=== PATIENT | male | born 1985 | race Caucasian/White ===

== ENCOUNTER 2024-01-27 10:53 | Emergency (ER) | payer OTHER ==
[~2024-01-27] VITALS: Ht 180.3 cm; Wt 95.3 kg
[2024-01-27] MEDS ORDERED: ARIPIPRAZOLE5 MG PO (11:14)
[2024-01-27] MEDS ORDERED: OXCARBAZEPINE600 MG PO (11:15)
[2024-01-27] MEDS ORDERED: Ondansetron Hydrochloride 4 MG/2 ML VIAL IV ONE (11:30)
[2024-01-27] MEDS ORDERED: SODIUM CHLORIDE 0.9% 1,000 ML IV ONE (11:30)
[2024-01-27 11:41] LABS: BASO % 0.2 % (0.0-1.0); EOS # 0.1 10*3/uL (0.0-0.4); EOS % 0.4 % (1.0-4.0); LYMPH # 1.2 10*3/uL (1.3-4.4); LYMPH % 7.4 % (27.0-41.0); MEAN CORPUSCULAR HGB 31.7 pg (27.0-31.0); MEAN CORPUSCULAR HGB CONC 35.2 g/dl (33.0-37.0); MEAN PLATELET VOLUME 9.3 fl (9.6-12.3); MONO # 0.6 10*3/uL (0.1-1.0); MONO % 3.8 % (3.0-9.0); NEUT # 14.6 10*3/uL (2.3-7.9); NEUT % 87.7 % (47.0-73.0); PLATELET COUNT AUTOMATED 276 10*3/uL (130-400); RED BLOOD COUNT 4.89 10*6/uL (4.50-5.90); WHITE BLOOD COUNT 16.7 10*3/uL (4.8-10.8)
[2024-01-27] MEDS ORDERED: Metoprolol Tartrate 5 MG/5 ML VIAL IV ONE (11:45)
[2024-01-27 11:58] LABS: ALKALINE PHOSPHATASE 96 U/L (46-116); BUN 11 mg/dl (9-23); CHLORIDE 109 mmol/L (98-107); POTASSIUM 3.6 mmol/L (3.4-5.1); SGPT/ALT 68 U/L (5-49); TOTAL PROTEIN 7.1 gm/dL (6.0-8.0)
[2024-01-27 12:00] LABS: ACT PARTIAL THROMBO TIME 23.7 SECONDS (20.0-32.1)
[2024-01-27 13:17] LABS: BILIRUBIN Negative (Negative); BLOOD Negative (Negative); CLARITY Cloudy (Clear); COLOR Yellow (Yellow); GLUCOSE Negative (Negative); KETONE Trace (Negative); LEUKO ESTERASE Negative (Negative); NITRITE Negative (Negative); PH 5.5 (4.5-8.0); SPECIFIC GRAVITY >= 1.030 (1.001-1.030); UROBILINOGEN 0.2 E.U./dl (0.0-1.0)
[2024-01-27 13:24] LABS: URINE AMPHETAMINES Negative (1000ng/ml); URINE BARBITURATES Negative (200ng/ml); URINE BENZODIAZEPINES Negative (200ng/ml); URINE CANNABINOIDS (THC) Negative (50ng/ml); URINE COCAINE Negative (300ng/ml); URINE METHADONE Negative (300ng/ml); URINE OPIATES Negative (300ng/ml); URINE PHENCYCLIDINE Negative (25ng/ml)
[2024-01-27 13:53] LABS: CALCIUM OXALATE CRYSTALS Trace; MUCOUS 2+
== END 2024-01-27 14:20 | disposition left against medical advice (07) ==
LOC: ED 10:53
PROVIDERS: Nurse Practitioner
DX: I48.91 Unspecified atrial fibrillation (principal); R42 Dizziness and giddiness; R11.2 Nausea with vomiting, unspecified; R51.9 Headache, unspecified; F41.9 Anxiety disorder, unspecified; F32.A Depression, unspecified; Z53.29 Procedure and treatment not carried out because of patient's decision for other reasons; Z98.890 Other specified postprocedural states

== ENCOUNTER 2024-07-15 12:07 | Emergency (ER) | payer OTHER ==
[~2024-07-15] VITALS: Ht 180.3 cm; Wt 93.0 kg
[~2024-07-15 12:07] MED LIST: ARIPIPRAZOLE5 MG PO; OXCARBAZEPINE600 MG PO
[2024-07-15] MEDS ORDERED: methylPREDNISolone sod succ 125 MG VIAL IM ONE (12:35)
== END 2024-07-15 13:32 | disposition home or self-care (01) ==
LOC: ED 12:07
DX: J40 Bronchitis, not specified as acute or chronic (principal); F41.9 Anxiety disorder, unspecified; F32.A Depression, unspecified; Z98.890 Other specified postprocedural states

== ENCOUNTER 2024-07-20 08:13 | Emergency (ER) | payer OTHER ==
[~2024-07-20] VITALS: Ht 180.3 cm; Wt 93.0 kg
[2024-07-20] MEDS ORDERED: Albuterol Sulf/Ipratropium 3 ML VIAL NEB ONE (08:40)
[2024-07-20] MEDS ORDERED: methylPREDNISolone sod succ 1,000 MG/16 ML VIAL IM ONE (08:40)
[2024-07-20] MEDS ORDERED: methylPREDNISolone sod succ 125 MG VIAL IM ONE (08:55)
[2024-07-20] MEDS ORDERED: MEDROL DOSEPAK4 MG PO (10:19)
[2024-07-20] MEDS ORDERED: VENT7GM INH (10:19)
[2024-07-20] MEDS ORDERED: BROMFED DM COU118 M2 PO (10:19)
[2024-07-20] MEDS ORDERED: ZITHROMAX250 MG PO (10:19)
== END 2024-07-20 10:35 | disposition home or self-care (01) ==
LOC: ED 08:13
DX: H66.43 Suppurative otitis media, unspecified, bilateral (principal); R05.3 Chronic cough; R11.0 Nausea; F31.9 Bipolar disorder, unspecified; F41.9 Anxiety disorder, unspecified; F17.210 Nicotine dependence, cigarettes, uncomplicated; Z98.890 Other specified postprocedural states